=== PATIENT | male | born 1990 | race African-American/Black ===

== ENCOUNTER 2017-04-03 07:33 | Inpatient (IN) | payer OTHER ==
[2017-04-03] VITALS (12 sets, daily range): BP systolic 105–132; BP diastolic 57–67; PULSE 82–99; RESP 16; TEMP 99–99.2; O2SAT 96–100
[~2017-04-03] VITALS: Ht 186.7 cm; Wt 78.8 kg
[2017-04-03] MEDS ORDERED: GENTAMICIN 80 MG PREMIX 100 ML ONE (07:37)
[2017-04-03] MEDS ORDERED: DIPHTH/TETANUS/ACEL PERTUSSIS (BOOSTER) 0.5 ML VIAL/PFS IM ONE (07:37)
[2017-04-03] MEDS ORDERED: ONDANSETRON HCL 4 MG/2 ML VIAL ONE (07:37)
[2017-04-03] MEDS ORDERED: ceFAZolin 2 GM PREMIX 50 ML ONE ×2 (07:37→10:24)
[2017-04-03] MEDS ORDERED: PROPOFOL 200 MG/20 ML AMP ONE (07:38)
[2017-04-03] MEDS ORDERED: MORPHINE SULFATE 8 MG/ML INJ ONE ×2 (07:48→09:56)
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
[2017-04-03] MEDS ORDERED: IOHEXOL 350 MG/ML 10 ML VIAL (for RAD DIAG) IVCONTRAST ONE (08:15)
[2017-04-03 08:23] LABS: INTERNATIONAL NORMALIZED RATIO 1.1 RATIO; PROTHROMBIN TIME - PATIENT 11.2 SEC (9.8-11.6)
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
[2017-04-03 08:31] LABS: AUTOMATED NEUTROPHIL # 6.1 TH/MM3 (1.8-7.7); BASOPHIL # 0.1 TH/MM3 (0-0.2); BASOPHIL % 0.7 % (0.0-2.0); EOSINOPHIL # 0.1 TH/MM3 (0-0.4); EOSINOPHIL % 0.6 % (0.0-4.0); HEMATOCRIT 41.1 % (39.0-51.0); HEMOGLOBIN 14.1 GM/DL (13.0-17.0); LYMPHOCYTE # 2.1 TH/MM3 (1.0-4.8); MEAN CELL VOLUME 95.1 FL (80.0-100.0); MEAN CORPUSCULAR HEMOGLOBIN 32.5 PG (27.0-34.0); MEAN CORPUSCULAR HGB CONC 34.2 % (32.0-36.0); MEAN PLATELET VOLUME 8.4 FL (7.0-11.0); MONOCYTE # 0.9 TH/MM3 (0-0.9); NEUT % 65.7 % (16.0-70.0); PLATELET COUNT 314 TH/MM3 (150-450); RED BLOOD COUNT 4.32 MIL/MM3 (4.50-5.90); RED CELL DISTRIBUTION WIDTH 13.4 % (11.6-17.2); WHITE BLOOD COUNT 9.3 TH/MM3 (4.0-11.0)
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
[2017-04-03] MEDS ORDERED: MORPHINE SULFATE 4 MG/ML INJ IV PUSH ONE (08:45)
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
[2017-04-03] MEDS ORDERED: GENTAMICIN SULFATE 80 MG/2 ML VIAL ONE (10:23)
[2017-04-03] MEDS ORDERED: BUPIVACAINE/EPINEPHRINE 0.25% 50 ML VIAL ONE (10:23)
[2017-04-03] MEDS ORDERED: MIDAZOLAM HCL 2 MG/2 ML VIAL ONE (10:57)
[2017-04-03] MEDS ORDERED: ALBUMIN 5% INJ 500 ML IV ONE (11:21)
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
[2017-04-03] MEDS ORDERED: ACETAMINOPHEN 325 MG TAB PO PRN (11:30)
[2017-04-03] MEDS ORDERED: ENALAPRILAT 1.25 MG/ML VIAL IV PUSH PRN (11:30)
[2017-04-03] MEDS ORDERED: SODIUM CHLORIDE 0.9% FLUSH 10 ML FLUSH IV FLUSH PRN (11:30)
[2017-04-03] MEDS ORDERED: ONDANSETRON HCL 4 MG/2 ML VIAL IV PUSH PRN (11:30)
[2017-04-03] MEDS ORDERED: PHENYLEPH/NS 1000 MCG/10 ML SYR IV ONE ×2 (12:00)
[2017-04-03] MEDS ORDERED: LACTATED RINGER'S 1000 ML INJ 1,000 ML IV ONE (12:00)
[2017-04-03] MEDS ORDERED: PHENYLEPHRINE HCL 10 MG/ML VIAL IV ONE (12:00)
[2017-04-03] MEDS ORDERED: PROPOFOL 200 MG/20 ML AMP IV ONE ×2 (12:00)
[2017-04-03] MEDS ORDERED: LACTATED RINGER'S 1000 ML INJ 3,000 ML IV ONE (12:00)
[2017-04-03] MEDS ORDERED: ESMOLOL HCL 100 MG/10 ML VIAL IV ONE (12:00)
[2017-04-03] MEDS ORDERED: DEXAMETHASONE SOD PHOS 4 MG/ML VIAL IV ONE ×2 (12:00)
[2017-04-03] MEDS ORDERED: SUCCINYLCHOLINE CHLORIDE 200 MG/10 ML VIAL IV ONE ×2 (12:00)
[2017-04-03] MEDS ORDERED: LIDOCAINE HCL 1% PF 5 ML SYRINGE OTHER ONE ×2 (12:00)
[2017-04-03] MEDS ORDERED: ONDANSETRON HCL 4 MG/2 ML VIAL IV ONE ×2 (12:00)
[2017-04-03] MEDS ORDERED: ePHEDrine/NS 25 MG/5 ML SYRINGE IV ONE (12:00)
[2017-04-03] MEDS ORDERED: LACTATED RINGER'S 1000 ML INJ 1,000 ML IV SCH (12:05)
--- NOTE | 2017-04-03 12:13 | PD.OP ---
cc: Lonnie Pierson MD Operative Report Date of Surgery: Apr 03, 2017 Preoperative Diagnosis: Comminuted open left femur shaft fracture Postoperative Diagnosis: Procedure: Irrigation and debridement of left femur fracture, intramedullary nail fixation left femur fracture, complex wound closure 20 cm in length Anesthesia: Gen. Surgeon: Lonnie Pierson Vending Mechanic(s): AMBROCIO Dimas PA-C The surgical procedure was assisted by my physician plumber's assistant. My P.A. presence was necessary throughout this case for the manipulation and positioning of the surgical extremity. My P.A. was assisting me throughout the duration of this procedure. The skill set of a physician plumber's assistant was medically necessary to complete this procedure. During the surgical case the surgical instrument maker was working at the back table and the physician plumber's assistant was directly assisting me. Operation and Findings: Plan of activity: Toe-touch weightbearing left leg Patient was seen and evaluated preoperatively. The patient has significant leg pain from open left femur shaft fracture. The risk and benefits of surgery were discussed in depth with the patient to include bleeding, infection, nonunion, malunion, need for hip replacement, painful hardware, as well as medical competitions including blood clots, stroke, heart attack, and . Informed consent was obtained. Operative site was marked. Patient was brought to the operating room and placed on Tyler table. IV sedation was administered by anesthesiologist. Timeout procedure was performed. Hip and leg were prepped with alcohol followed by Hibiclens and draped in the usual sterile fashion. IV antibiotics were given prior to incision. Procedure began irrigation and debridement of open wound. There was a small lateral wound and a very large medial and posterior wound. Areas of muscle were debrided. Necrotic skin muscle and fascia were sharply debrided. Fracture site was visualized. Fracture was cleaned with curettes. There was some gross contamination. After thorough debridement of all necrotic and contaminated tissue, the soft tissue and bone were thoroughly irrigated with pulsatile lavage. At this point wound appeared to be clean. Next attention was turned towards reduction of fracture. Traction was applied. The leg was manipulated to achieve reduction. Excellent reduction was achieved. Fluoroscopy was used to confirm reduction. A two inch incision was made over the anterior knee. A medial arthrotomy was created. Guidepin was placed into the distal femur and advanced into the femoral canal. Fluoroscopy confirmed appropriate guidepin placement. A opening reamer was placed over the guidepin. A long ball tipped guide pin was now placed down the femoral canal into the center of the proximal femur. The nail length was now measured. Fluoroscopy confirmed appropriate guidepin placement. Flexible reamers were now passed over the guidepin to ream the intramedullary canal. The Synthes nail was attached to the insertion handle. Nail was now placed over the guidepin into the femoral canal. Fluoroscopy confirmed appropriate nail placement. A small percutaneous incisions were made over the lateral thigh. Cannulas were placed through the insertion handle down to the femur. Using the insertion handle as a guide the distal interlocking screw holes were predrilled and screw lengths were measured. Appropriate length screws was now placed. Next, using perfect tlingit & haida technique two proximal interlocking screws were placed. Screw holes were predrilled and screw lengths were measured. Final fluoroscopy revealed well aligned fracture with well-placed hardware. Next attention was turned to wound closure. Surgical incisions were closed with #1 PDS, 3-0 PDS, and ana. The traumatic lacerations were also closed. These lacerations were complicated closed secondary to the stellate nature of the wounds. Subcutaneous tissue was reapproximated with 3-0 PDS. Skin was closed with 3-0 nylon. A comminution vertical mattress, retention suture, and horizontal mattress sutures were utilized. The skin was completely closed. Sterile dressings were applied. Patient was awakened and transferred to recovery room. Lonnie Pierson MD Apr 03, 2017 12:13
[2017-04-03] MEDS ORDERED: diphenhydrAMINE HCL 25 MG CAP PO PRN (12:15)
[2017-04-03] MEDS ORDERED: ACETAMINOPHEN/HYDROcodone 325 MG/10 MG TAB PO PRN (12:15)
[2017-04-03] MEDS ORDERED: LORazepam 2 MG/ML VIAL IV PUSH PRN (12:15)
[2017-04-03] MEDS ORDERED: DO NOT ADM ANY ANTICOAGULANT DRUGS PRN (12:58)
[2017-04-03] MEDS: PANTOPRAZOLE SODIUM 40 MG VIAL IVP SCH (13:00)
[2017-04-03] MEDS: CALCIUM/VITAMIN D 250 MG/125 U TAB PO SCH ×2 (13:00→18:45)
[2017-04-03] MEDS: PHENYLEPHRINE 40 MG in D5W 500 ML IV PRN ×2 (13:05→20:48)
[2017-04-03] MEDS ORDERED: PHENYLEPHRINE HCL 10 MG/ML VIAL ONE (13:05)
[2017-04-03] MEDS ORDERED: *RESP: ALBUTEROL 2.5 MG/3 ML NEB (PRN) PERIprocedural Use ONLY NEB ONE (13:07)
[2017-04-03 13:31] LABS: HEMATOCRIT 29.6 % (39.0-51.0)
[2017-04-03] MEDS ORDERED: SUCCINYLCHOLINE CHLORIDE 200 MG/10 ML VIAL ONE (13:36)
[2017-04-03] MEDS ORDERED: PROPOFOL 1000 MG/100 ML INJ 100 ML ONE (13:36)
[2017-04-03] MEDS ORDERED: SENNOSIDES 8.6 MG TAB PO PRN (15:00)
[2017-04-03] MEDS ORDERED: MISCELLANEOUS NURSING INFORMATION XX SCH (15:00)
[2017-04-03] MEDS ORDERED: LACTULOSE SYRUP 20 GM/30 ML CUP PO PRN (15:00)
[2017-04-03] MEDS ORDERED: MAGNESIUM HYDROXIDE SUSP 30 ML CUP PO PRN (15:00)
[2017-04-03] MEDS ORDERED: PROPOFOL 1000 MG/100 ML INJ 100 ML IV PRN (15:00)
[2017-04-03] MEDS ORDERED: CHLORHEXIDINE GLUCONATE 2 % 1 PACK (2 CLOTHS) TOP PRN (15:00)
[2017-04-03] MEDS ORDERED: fentaNYL DRIP 250 ML IV PRN (15:00)
[2017-04-03] MEDS ORDERED: BISACODYL 10 MG SUPP RECTAL PRN (15:00)
[2017-04-03] MEDS ORDERED: fentaNYL DRIP 250 ML ONE (15:20)
[2017-04-03] MEDS ORDERED: TERBUTALINE INJ 1 MG/ML AMP SQ PRN (15:30)
[2017-04-03] MEDS ORDERED: NOREPINEPHRINE 4 MG/D5W 250 ML IV PRN (15:30)
--- NOTE | 2017-04-03 15:32 | RADRPT ---
EXAM DATE/TIME: 04/03/2017 11:42 [facility] COMPARISON: FEMUR LEFT (AP & LAT/2VWS), April 03, 2017, 7:34. INDICATIONS : Left femur fracture repair with intermedullary damari. OR. MEDICAL HISTORY : None. SURGICAL HISTORY : None. ENCOUNTER: Initial ACUITY: 1 day PAIN SCORE: Non-responsive. LOCATION: Left femur FINDINGS: Intramedullary damari is noted within the left femur status post ORIF of mid shaft comminuted fracture. CONCLUSION: Intramedullary damari within the left femur status post ORIF of comminuted mid shaft fracture. Jorge Luis Jaquez MD on April 03, 2017 at 15:29 Board Certified Radiologist. This report was verified electronically.
--- NOTE | 2017-04-03 15:39 | RADRPT ---
EXAM DATE/TIME: 04/03/2017 14:20 [facility] COMPARISON: CHEST SINGLE AP, April 03, 2017, 7:34. INDICATIONS : Re-intubation. MEDICAL HISTORY : Unobtainable. SURGICAL HISTORY : Unobtainable. ENCOUNTER: Subsequent ACUITY: 1 day PAIN SCORE: Non-responsive. LOCATION: Bilateral chest FINDINGS: Endotracheal tube has its tip in good position 4 cm above the jacy. Right perihilar patchiness is n oted consistent with atelectasis and/or focal infiltrate. The left lung is clear. The heart is normal . CONCLUSION: 1. Right perihilar patchiness with atelectasis and/or infiltrate. 2. Endotracheal tube in good position 4 cm above the jacy. Jorge Luis Jaquez MD on April 03, 2017 at 15:36 Board Certified Radiologist. This report was verified electronically.
[2017-04-03] MEDS ORDERED: RASS Change Order XX ONE (15:45)
[2017-04-03] MEDS ORDERED: RESP: ALBUTEROL 2.5 MG/3 ML NEB (PRN) NEB (15:45)
[2017-04-03] MEDS ORDERED: PROPOFOL 1000 MG/100 ML IV PRN (15:45)
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
[2017-04-03] MEDS: SODIUM CHLOR 0.9% 1000 ML INJ 1,000 ML IV SCH (16:00)
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
[2017-04-03] MEDS ORDERED: fentaNYL 2,500 MCG/NS 250 ML IV PRN (18:00)
[2017-04-03] MEDS: PROPOFOL 1000 MG/100 ML IV PRN ×2 (18:23→21:50)
[2017-04-03] MEDS: ceFAZolin 2 GM PREMIX 50 ML IV SCH (18:24)
[2017-04-03] MEDS: GENTAMICIN 80 MG PREMIX 100 ML IV SCH (18:24)
[2017-04-03] MEDS: CHLORHEXIDINE 0.12% (ORAL KIT) 15 ML CUP MT SCH (20:27)
[2017-04-03] MEDS: DOCUSATE SODIUM 50 MG/SENNA 8.6 MG TAB PO SCH (20:27)
[2017-04-03] MEDS: RESP: ALBUTEROL 2.5 MG/IPRATROPIUM 0.5 MG NEB (SCH) NEB (20:57)
[2017-04-03] MEDS ORDERED: FAMOTIDINE 20 MG/2 ML VIAL IV PUSH SCH (21:00)
[2017-04-03] MEDS ORDERED: ENOXAPARIN SODIUM 30 MG/0.3 ML SYRINGE SQ SCH (21:00)
[2017-04-04] VITALS (17 sets, daily range): BP systolic 99–137; BP diastolic 50–69; PULSE 70–122; RESP 16–26; TEMP 98.3–100.9; O2SAT 93–100
[2017-04-04] MEDS: SODIUM CHLOR 0.9% 1000 ML INJ 1,000 ML IV SCH ×3 (01:11→20:50)
[2017-04-04] MEDS: PROPOFOL 1000 MG/100 ML IV PRN ×3 (01:11→09:22)
[2017-04-04] MEDS: ceFAZolin 2 GM PREMIX 50 ML IV SCH ×3 (03:11→18:20)
[2017-04-04] MEDS: GENTAMICIN 80 MG PREMIX 100 ML IV SCH ×3 (03:45→18:33)
[2017-04-04] MEDS: RESP: ALBUTEROL 2.5 MG/IPRATROPIUM 0.5 MG NEB (SCH) NEB ×3 (03:50→20:35)
[2017-04-04] MEDS: CHLORHEXIDINE GLUCONATE 2 % 1 PACK (2 CLOTHS) TOP SCH (04:00)
[2017-04-04] MEDS: PHENYLEPHRINE 40 MG in D5W 500 ML IV PRN (04:04)
[2017-04-04 04:07] LABS: AUTOMATED NEUTROPHIL # 6.3 TH/MM3 (1.8-7.7); BASOPHIL % 0.1 % (0.0-2.0); HEMOGLOBIN 9.6 GM/DL (13.0-17.0); LYMPH % 15.2 % (9.0-44.0); LYMPHOCYTE # 1.3 TH/MM3 (1.0-4.8); MEAN CELL VOLUME 95.5 FL (80.0-100.0); MEAN CORPUSCULAR HEMOGLOBIN 32.7 PG (27.0-34.0); MEAN CORPUSCULAR HGB CONC 34.2 % (32.0-36.0); MEAN PLATELET VOLUME 8.4 FL (7.0-11.0); MONOCYTE # 1.1 TH/MM3 (0-0.9); NEUT % 71.7 % (16.0-70.0); PLATELET COUNT 252 TH/MM3 (150-450); RED BLOOD COUNT 2.93 MIL/MM3 (4.50-5.90); RED CELL DISTRIBUTION WIDTH 13.2 % (11.6-17.2); WHITE BLOOD COUNT 8.8 TH/MM3 (4.0-11.0)
[2017-04-04 04:35] LABS: ALBUMIN 2.9 GM/DL (3.4-5.0); AST (GOT) 159 U/L (15-37); BICARBONATE 28.7 MEQ/L (21.0-32.0); BLOOD UREA NITROGEN 10 MG/DL (7-18); CALCIUM 8.5 MG/DL (8.5-10.1); CHLORIDE 102 MEQ/L (98-107); CREATININE 1.01 MG/DL (0.60-1.30); GLOMERULAR FILTRATION RATE 77 ML/MIN (>89); GLUCOSE,RANDOM 129 MG/DL (74-106); SODIUM (NA) 138 MEQ/L (136-145)
[2017-04-04 04:36] LABS: ALT (GPT) 54 U/L (12-78); PHOSPHORUS 4.2 MG/DL (2.5-4.9)
[2017-04-04 04:38] LABS: ALKALINE PHOSPHATASE 57 U/L (45-117); TOTAL BILIRUBIN ADULT 0.4 MG/DL (0.2-1.0); TOTAL PROTEIN 5.5 GM/DL (6.4-8.2)
[2017-04-04] MEDS: ARTIFICIAL TEARS OPTH SOLN 15 ML BTL EACH EYE SCH ×3 (05:25→20:34)
--- NOTE | 2017-04-04 05:32 | RADRPT ---
EXAM DATE/TIME: 04/04/2017 04:45 [facility] COMPARISON: CHEST SINGLE AP, April 03, 2017, 14:20. INDICATIONS : Respiratory failure. MEDICAL HISTORY : Unobtainable. SURGICAL HISTORY : Unobtainable. ENCOUNTER: Subsequent ACUITY: 2 days PAIN SCORE: Non-responsive. LOCATION: Bilateral chest FINDINGS: A single view of the chest demonstrates endotracheal tube in good position. NG enters stomach. Mild b asilar and dependent airspace disease, right greater than left. No significant change from April 03 . No effusion or pneumothorax.. CONCLUSION: Mild basilar airspace disease, unchanged. Placement of nasogastric tube seen entering stomach. Endotr acheal tube unchanged. Mendez Parker MD on April 04, 2017 at 5:29 Board Certified Radiologist. This report was verified electronically.
--- NOTE | 2017-04-04 06:56 | PD.ORT.PN ---
Subjective Subjective Remarks POD 1 s/p I&D with IMN and vac application left open femur fracture intubated/sedated Objective Vitals Vital Signs Date Time Temp Pulse Resp B/P (MAP) Pulse Ox O2 Delivery O2 Flow Rate FiO2 04/04/17 06:00 112 04/04/17 04:26 100 40 04/04/17 04:04 113 109/56 04/04/17 04:00 114 04/04/17 04:00 99.0 114 16 109/56 (73) 100 04/04/17 02:00 104 04/04/17 01:17 100 40 04/04/17 00:00 100 04/04/17 00:00 100 Mechanical Ventilator 40 04/04/17 00:00 99.8 100 16 101/59 (73) 100 04/03/17 22:00 94 04/03/17 20:57 99 40 04/03/17 20:48 90 106/58 04/03/17 20:00 99.2 90 16 105/57 (73) 99 04/03/17 20:00 99 Mechanical Ventilator 40 04/03/17 20:00 90 04/03/17 18:00 82 04/03/17 16:29 100 40 04/03/17 16:15 100 100 04/03/17 16:00 99.0 82 16 118/66 (83) 99 04/03/17 16:00 78 16 107/71 (83) 100 Mechanical Ventilator 50 04/03/17 15:45 80 16 107/66 (80) 100 Mechanical Ventilator 50 04/03/17 15:30 79 16 108/67 (81) 100 Mechanical Ventilator 50 04/03/17 15:15 78 16 111/58 (75) 100 Mechanical Ventilator 50 04/03/17 15:00 78 16 105/60 (75) 100 Mechanical Ventilator 50 04/03/17 14:45 79 16 115/58 (77) 100 Mechanical Ventilator 50 04/03/17 14:30 83 16 99/57 (71) 100 Mechanical Ventilator 50 04/03/17 14:15 84 16 99/54 (69) 100 Mechanical Ventilator 50 04/03/17 14:00 89 17 104/54 (71) 96 Mechanical Ventilator 50 04/03/17 13:45 92 16 101/54 (70) 100 Mechanical Ventilator 50 04/03/17 13:42 100 50 04/03/17 13:42 50 04/03/17 13:30 90 18 107/56 (73) 100 Simple Mask 15 04/03/17 13:15 98 18 98/50 (66) 90 Simple Mask 15 04/03/17 13:05 81 86/43 04/03/17 13:05 81 86/43 04/03/17 13:00 98.4 81 16 86/43 (57) 100 Simple Mask 15 04/03/17 09:20 04/03/17 09:00 99 16 132/66 (88) 99 Nasal Cannula 2.00 04/03/17 08:53 96 04/03/17 08:52 96 3.00 04/03/17 08:20 98 16 130/67 (88) 98 Room Air 04/03/17 08:20 99 Nasal Cannula 2.00 I/O 04/03/17 04/03/17 04/03/17 04/04/17 04/04/17 04/04/17 07:00 15:00 23:00 07:00 15:00 23:00 Intake Total 1600 ml 600 ml 1850 ml Output Total 4250 ml 1400 ml 1750 ml Balance -2650 ml -800 ml 100 ml Intake IV Total 1600 ml 600 ml 1850 ml Output Urine Total 1400 ml 1700 ml Gastric Drainage Total 50 ml Drainage Total 0 ml 0 ml Estimated Blood Loss 250 ml Other 4000 ml # Bowel Movements 0 Result Diagram: 04/04/1725204/04/17252 Other Results Laboratory Tests Test 04/03/17 07:39 Prothromb Time International Ratio 1.1 RATIO Prothrombin Time 11.2 SEC (9.8-11.6) Imaging Last 24 hours Impressions Chest X-Ray 04/04/17 0600 Signed Impressions: Service Date/Time: Tuesday, April 04, 2017 04:45 - CONCLUSION: Mild basilar airspace disease, unchanged. Placement of nasogastric tube seen entering stomach. Endotracheal tube unchanged. Mendez Parker MD Pelvis X-Ray 04/03/17750 Signed Impressions: Service Date/Time: March 07:34 - CONCLUSION: No acute bony abnormality identified. Morris Singh MD Head CT 04/03/17750 Signed Impressions: Service Date/Time: March 07:55 - CONCLUSION: Mild cerebral atrophy. No acute intracranial abnormality. Khurram Reyna MD Chest X-Ray 04/03/17750 Signed Impressions: Service Date/Time: March 07:34 - CONCLUSION: 1. Negative examination. Morris Singh MD Chest CT 04/03/17750 Signed Impressions: Service Date/Time: March 08:06 - CONCLUSION: 1. No acute thoracic injury. Khurram Reyna MD Cervical Spine CT 04/03/17750 Signed Impressions: Service Date/Time: March 08:02 - CONCLUSION: 1. No fracture seen. 2. Rotation at the C1-C2 facets likely positional. Khurram Reyna MD Abdomen/Pelvis CT 04/03/17750 Signed Impressions: Service Date/Time: March 08:04 - CONCLUSION: 1. No abdominal visceral injury. 2. Sclerotic focus right proximal femur likely bone island Khurram Reyna MD Objective Remarks LLE: dressings clean and dry. slight bloody drainage on lateral thigh. vac in place. good seal. Assessment & Plan Assessment and Plan 1) Left Open Femoral Shaft Fx s/p IMN with vac application - POD 1 -TTWB -maintain dressings -maintain vac dressing. will eval for vac removal mon/Valentin Brown/[employer] VITA Apr 04, 2017 06:56
[2017-04-04] MEDS ORDERED: HALOPERIDOL LACTATE 5 MG/ML AMP IV PUSH PRN (07:30)
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
[2017-04-04] MEDS ORDERED: ZIPRASIDONE MESYLATE 20 MG VIAL IM PRN (08:15)
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
[2017-04-04] MEDS: CALCIUM/VITAMIN D 250 MG/125 U TAB PO SCH ×3 (08:31→17:49)
[2017-04-04] MEDS: CHLORHEXIDINE 0.12% (ORAL KIT) 15 ML CUP MT SCH ×2 (08:31→20:00)
[2017-04-04] MEDS: FOLIC ACID 1 MG TAB PO SCH (08:31)
[2017-04-04] MEDS: DOCUSATE SODIUM 50 MG/SENNA 8.6 MG TAB PO SCH ×2 (08:31→20:31)
[2017-04-04] MEDS: THIAMINE HCL 100 MG TAB PO SCH (08:31)
[2017-04-04] MEDS: MULTIVITAMIN TAB PO SCH (08:31)
[2017-04-04] MEDS: DEXMEDETOMIDINE INJ 200 MCG in SODIUM CHLORIDE 0.9% INJ 50 ML IV PRN ×2 (09:23→11:17)
[2017-04-04] MEDS ORDERED: LACTATED RINGER'S 1000 ML INJ 1,000 ML IV ONE ×2 (09:45→13:15)
--- NOTE | 2017-04-04 10:23 | RADRPT ---
EXAM DATE/TIME: 04/04/2017 09:48 [facility] COMPARISON: No previous studies available for comparison. INDICATIONS : Left foot pain. MEDICAL HISTORY : None. SURGICAL HISTORY : None. ENCOUNTER: Initial ACUITY: 2 days PAIN SCORE: Non-responsive. LOCATION: Left foot FINDINGS: Two view examination of the left foot demonstrates no soft tissue swelling, dislocation, or fracture. The calcaneus is intact. Bony mineralization is normal. CONCLUSION: Negative for fracture. Cale Singh MD FACR on April 04, 2017 at 10:20 Board Certified Radiologist. This report was verified electronically.
[2017-04-04] MEDS ORDERED: PHENYLEPHRINE HCL 10 MG/ML VIAL ONE (11:29)
[2017-04-04] MEDS ORDERED: ALBUMIN 5% INJ 500 ML IV ONE (12:15)
[2017-04-04] MEDS: PANTOPRAZOLE SODIUM 40 MG VIAL IVP SCH (12:33)
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
[2017-04-04] MEDS: HYDROCORTISONE SOD SUCCINATE 100 MG VIAL IV PUSH SCH ×2 (13:50→20:30)
[2017-04-04] MEDS: ENOXAPARIN SODIUM 30 MG/0.3 ML SYRINGE SQ SCH ×2 (13:52→23:40)
[2017-04-04] MEDS: MIDODRINE 5 MG TAB PO SCH ×2 (13:52→17:49)
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
[2017-04-04] MEDS: MORPHINE SULFATE 4 MG/ML INJ IV PUSH PRN ×3 (15:00→21:34)
[2017-04-04] MEDS: ACETAMINOPHEN/HYDROcodone 325 MG/5 MG TAB PO PRN (20:28)
[2017-04-05] VITALS (17 sets, daily range): BP systolic 96–136; BP diastolic 50–65; PULSE 71–98; RESP 12–19; TEMP 98.3–99.6; O2SAT 97–100
[2017-04-05] MEDS: CHLORHEXIDINE GLUCONATE 2 % 1 PACK (2 CLOTHS) TOP SCH (02:59)
[2017-04-05] MEDS: ceFAZolin 2 GM PREMIX 50 ML IV SCH ×3 (03:00→18:09)
[2017-04-05] MEDS: GENTAMICIN 80 MG PREMIX 100 ML IV SCH ×2 (03:00→11:42)
[2017-04-05] MEDS: RESP: ALBUTEROL 2.5 MG/IPRATROPIUM 0.5 MG NEB (SCH) NEB ×2 (03:17→07:58)
[2017-04-05] MEDS: HYDROCORTISONE SOD SUCCINATE 100 MG VIAL IV PUSH SCH (04:07)
[2017-04-05] MEDS: ACETAMINOPHEN/HYDROcodone 325 MG/5 MG TAB PO PRN ×4 (04:08→20:58)
[2017-04-05] MEDS: MORPHINE SULFATE 4 MG/ML INJ IV PUSH PRN ×3 (04:08→21:57)
[2017-04-05] MEDS: ARTIFICIAL TEARS OPTH SOLN 15 ML BTL EACH EYE SCH (04:09)
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
[2017-04-05] MEDS: MIDODRINE 5 MG TAB PO SCH ×3 (06:20→17:59)
--- NOTE | 2017-04-05 07:16 | PD.ORT.PN ---
Subjective Subjective Remarks Resting comfortably currently. States pain relatively well controlled at rest. Denies SOB/CP. Objective Vitals Vital Signs Date Time Temp Pulse Resp B/P (MAP) Pulse Ox O2 Delivery O2 Flow Rate FiO2 04/05/17 06:00 76 04/05/17 04:00 76 04/05/17 04:00 98.5 76 14 109/58 (75) 100 04/05/17 02:00 76 04/05/17 00:00 84 04/05/17 00:00 99.6 84 15 96/50 (65) 99 04/04/17 22:00 94 04/04/17 20:37 100 21 04/04/17 20:00 96 04/04/17 20:00 100 Room Air 04/04/17 20:00 100.9 101 26 122/57 (78) 100 04/04/17 18:00 98 04/04/17 16:00 98.8 96 23 109/56 (73) 99 04/04/17 16:00 91 04/04/17 15:05 18 04/04/17 14:00 98 04/04/17 12:00 98.6 70 26 137/69 (91) 100 04/04/17 12:00 120 04/04/17 10:10 93 Nasal Cannula 3.00 04/04/17 10:10 94 Nasal Cannula 3 04/04/17 10:00 122 04/04/17 09:07 99 40 04/04/17 08:00 110 04/04/17 08:00 98.3 114 16 99/50 (66) 100 I/O 04/04/17 04/04/17 04/04/17 04/05/17 04/05/17 04/05/17 07:00 15:00 23:00 07:00 15:00 23:00 Intake Total 1850 ml 1225 ml 3545 ml 390 ml Output Total 1750 ml 1650 ml 1650 ml Balance 100 ml 1225 ml 1895 ml -1260 ml Intake Oral 450 ml 240 ml IV Total 1850 ml 1225 ml 3095 ml 150 ml Output Urine Total 1700 ml 1650 ml 1650 ml Gastric Drainage Total 50 ml Drainage Total 0 ml 0 ml # Bowel Movements 0 0 0 Result Diagram: 04/04/17 0253 04/04/173 Imaging Last 24 hours Impressions Chest X-Ray 04/04/17 0600 Signed Impressions: Service Date/Time: Tuesday, April 04, 2017 04:45 - CONCLUSION: Mild basilar airspace disease, unchanged. Placement of nasogastric tube seen entering stomach. Endotracheal tube unchanged. Mendez Parker MD Pelvis X-Ray 04/03/17750 Signed Impressions: Service Date/Time: March 07:34 - CONCLUSION: No acute bony abnormality identified. Morris Singh MD Head CT 04/03/17750 Signed Impressions: Service Date/Time: March 07:55 - CONCLUSION: Mild cerebral atrophy. No acute intracranial abnormality. Khurram Reyna MD Chest X-Ray 04/03/17750 Signed Impressions: Service Date/Time: March 07:34 - CONCLUSION: 1. Negative examination. Morris Singh MD Chest CT 04/03/17750 Signed Impressions: Service Date/Time: March 08:06 - CONCLUSION: 1. No acute thoracic injury. Khurram Reyna MD Cervical Spine CT 04/03/17750 Signed Impressions: Service Date/Time: March 08:02 - CONCLUSION: 1. No fracture seen. 2. Rotation at the C1-C2 facets likely positional. Khurram Reyna MD Abdomen/Pelvis CT 04/03/17750 Signed Impressions: Service Date/Time: March 08:04 - CONCLUSION: 1. No abdominal visceral injury. 2. Sclerotic focus right proximal femur likely bone island Khurram Reyna MD Objective Remarks Asleep but arousable. NAD LLE: dressings clean and dry. slight bloody drainage on lateral thigh. vac in place. good seal. Negative Homans Assessment & Plan Assessment and Plan 1) Left Open Femoral Shaft Fx s/p IMN with vac application - POD 2 -TTWB -maintain dressings -maintain vac dressing. will eval for vac removal mon/Blossom Nieves MD Apr 05, 2017 07:16
[2017-04-05 07:25] LABS: MEAN CORPUSCULAR HEMOGLOBIN 33.5 PG (27.0-34.0); MEAN CORPUSCULAR HGB CONC 35.3 % (32.0-36.0); MEAN PLATELET VOLUME 8.7 FL (7.0-11.0); PLATELET COUNT 159 TH/MM3 (150-450); RED CELL DISTRIBUTION WIDTH 13.3 % (11.6-17.2); WHITE BLOOD COUNT 7.6 TH/MM3 (4.0-11.0)
[2017-04-05] MEDS: CHLORHEXIDINE 0.12% (ORAL KIT) 15 ML CUP MT SCH (07:30)
[2017-04-05] MEDS: SODIUM CHLOR 0.9% 1000 ML INJ 1,000 ML IV SCH (07:30)
[2017-04-05 07:31] LABS: HEMOGLOBIN 6.7 GM/DL (13.0-17.0)
[2017-04-05 07:41] LABS: BICARBONATE 31.5 MEQ/L (21.0-32.0); CALCIUM 8.1 MG/DL (8.5-10.1); CREATININE 0.86 MG/DL (0.60-1.30)
[2017-04-05] MEDS: MULTIVITAMIN TAB PO SCH (08:26)
[2017-04-05] MEDS: DOCUSATE SODIUM 50 MG/SENNA 8.6 MG TAB PO SCH ×2 (08:26→20:50)
[2017-04-05] MEDS: FOLIC ACID 1 MG TAB PO SCH (08:26)
[2017-04-05] MEDS: THIAMINE HCL 100 MG TAB PO SCH (08:26)
[2017-04-05] MEDS: CALCIUM/VITAMIN D 250 MG/125 U TAB PO SCH ×3 (08:26→18:09)
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
[2017-04-05] MEDS: PANTOPRAZOLE SOD 40 MG DELAYED RELEASE TAB PO SCH (09:48)
[2017-04-05] MEDS: ENOXAPARIN SODIUM 30 MG/0.3 ML SYRINGE SQ SCH ×2 (11:43→23:45)
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
[2017-04-05 17:44] LABS: HEMATOCRIT 24.3 % (39.0-51.0); HEMOGLOBIN 8.5 GM/DL (13.0-17.0)
[2017-04-06 00:59] VITALS: BP 127/57; PULSE 92; RESP 19; TEMP 97.8; O2SAT 96
[2017-04-06] MEDS: ACETAMINOPHEN/HYDROcodone 325 MG/5 MG TAB PO PRN ×3 (01:12→13:12)
[2017-04-06] MEDS: ceFAZolin 2 GM PREMIX 50 ML IV SCH ×2 (01:12→09:54)
[2017-04-06] MEDS: MORPHINE SULFATE 4 MG/ML INJ IV PUSH PRN ×3 (03:39→18:12)
[2017-04-06] MEDS: CHLORHEXIDINE GLUCONATE 2 % 1 PACK (2 CLOTHS) TOP SCH (04:00)
[2017-04-06 04:21] VITALS: BP 105/56; PULSE 86; RESP 18; TEMP 97.9; O2SAT 98
[2017-04-06] MEDS: MIDODRINE 5 MG TAB PO SCH ×2 (06:52→09:54)
[2017-04-06 07:42] LABS: HEMATOCRIT 22.8 % (39.0-51.0); HEMOGLOBIN 7.8 GM/DL (13.0-17.0); MEAN CELL VOLUME 92.1 FL (80.0-100.0); MEAN CORPUSCULAR HEMOGLOBIN 31.6 PG (27.0-34.0); MEAN CORPUSCULAR HGB CONC 34.3 % (32.0-36.0); MEAN PLATELET VOLUME 8.6 FL (7.0-11.0); PLATELET COUNT 169 TH/MM3 (150-450); RED BLOOD COUNT 2.47 MIL/MM3 (4.50-5.90); RED CELL DISTRIBUTION WIDTH 15.5 % (11.6-17.2); WHITE BLOOD COUNT 8.5 TH/MM3 (4.0-11.0)
[2017-04-06 08:00] VITALS: BP 114/64; PULSE 75; PULSE 86; RESP 18; TEMP 98.6; O2SAT 96
[2017-04-06 08:05] LABS: BICARBONATE 29.6 MEQ/L (21.0-32.0); CALCIUM 7.6 MG/DL (8.5-10.1); CREATININE 0.69 MG/DL (0.60-1.30)
[2017-04-06] MEDS: DOCUSATE SODIUM 50 MG/SENNA 8.6 MG TAB PO SCH (09:55)
[2017-04-06] MEDS: THIAMINE HCL 100 MG TAB PO SCH (09:55)
[2017-04-06] MEDS: PANTOPRAZOLE SOD 40 MG DELAYED RELEASE TAB PO SCH (09:55)
[2017-04-06] MEDS: MULTIVITAMIN TAB PO SCH (09:55)
[2017-04-06] MEDS: FOLIC ACID 1 MG TAB PO SCH (09:55)
[2017-04-06] MEDS: CALCIUM/VITAMIN D 250 MG/125 U TAB PO SCH ×3 (09:55→17:04)
[2017-04-06] MEDS: ENOXAPARIN SODIUM 30 MG/0.3 ML SYRINGE SQ SCH (09:58)
[2017-04-06] MEDS ORDERED: FOLI1TAB6 PO (11:48)
[2017-04-06] MEDS ORDERED: THIA100 PO (11:48)
[2017-04-06] MEDS ORDERED: THERTAB15 PO (11:48)
[2017-04-06] MEDS ORDERED: ENOX30P SQ (11:48)
[2017-04-06] MEDS ORDERED: PERI PO (11:48)
[2017-04-06] MEDS ORDERED: ZIPR20P IM (11:48)
[2017-04-06] MEDS ORDERED: HALO5P IV PUSH (11:48)
[2017-04-06] MEDS ORDERED: PANT40TA3 PO (11:48)
[2017-04-06] MEDS ORDERED: CALC250 PO (11:48)
[2017-04-06] MEDS ORDERED: HYDR-3516 PO (11:48)
[2017-04-06] MEDS ORDERED: MAGN30S PO (11:48)
[2017-04-06] MEDS ORDERED: MORP4INJ3 IV PUSH (11:48)
[2017-04-06] MEDS ORDERED: Lactulose Liq PO (11:48)
[2017-04-06 12:00] VITALS: BP 136/73; PULSE 79; PULSE 93; RESP 18; TEMP 96; O2SAT 98
--- NOTE | 2017-04-06 12:31 | PD.ORT.PN ---
Subjective Subjective Remarks Resting comfortably currently. States pain relatively well controlled at rest. Denies SOB/CP. Objective Vitals Vital Signs Date Time Temp Pulse Resp B/P (MAP) Pulse Ox O2 Delivery O2 Flow Rate FiO2 04/06/17 12:00 96.0 79 18 136/73 (94) 98 04/06/17 10:45 18 04/06/17 08:27 18 04/06/17 08:00 86 04/06/17 08:00 98.6 75 18 114/64 (81) 96 04/06/17 04:21 97.9 86 18 105/56 (72) 98 04/06/17 00:59 97.8 92 19 127/57 (80) 96 04/05/17 22:23 98.3 98 18 136/58 (84) 97 04/05/17 21:52 Room Air 04/05/17 20:27 100 21 04/05/17 20:00 96 04/05/17 20:00 100 Room Air 04/05/17 20:00 99.5 96 19 124/59 (80) 100 04/05/17 18:00 94 04/05/17 16:00 98.5 96 16 128/65 (86) 99 04/05/17 16:00 93 04/05/17 14:00 86 04/05/17 13:40 98.5 87 17 111/59 100 04/05/17 13:25 98.5 79 15 111/59 100 I/O 04/05/17 04/05/17 04/05/17 04/06/17 04/06/17 04/06/17 07:00 15:00 23:00 07:00 15:00 23:00 Intake Total 390 ml 400 ml 1480 ml 480 ml Output Total 1650 ml 850 ml Balance -1260 ml 400 ml 630 ml 480 ml Intake Oral 240 ml 1080 ml 480 ml IV Total 150 ml Packed Cells 400 ml 400 ml Output Urine Total 1650 ml 850 ml Drainage Total 0 ml 0 ml # Voids 2 1 # Bowel Movements 0 0 0 Result Diagram: 04/06/1761404/06/17614 Imaging Last 24 hours Impressions Chest X-Ray 04/04/17 0600 Signed Impressions: Service Date/Time: Tuesday, April 04, 2017 04:45 - CONCLUSION: Mild basilar airspace disease, unchanged. Placement of nasogastric tube seen entering stomach. Endotracheal tube unchanged. Mendez Parker MD Pelvis X-Ray 04/03/17750 Signed Impressions: Service Date/Time: March 07:34 - CONCLUSION: No acute bony abnormality identified. Morris Singh MD Head CT 04/03/17750 Signed Impressions: Service Date/Time: March 07:55 - CONCLUSION: Mild cerebral atrophy. No acute intracranial abnormality. Khurram Reyna MD Chest X-Ray 04/03/17750 Signed Impressions: Service Date/Time: March 07:34 - CONCLUSION: 1. Negative examination. Morris Singh MD Chest CT 04/03/17750 Signed Impressions: Service Date/Time: March 08:06 - CONCLUSION: 1. No acute thoracic injury. Khurram Reyna MD Cervical Spine CT 04/03/17750 Signed Impressions: Service Date/Time: March 08:02 - CONCLUSION: 1. No fracture seen. 2. Rotation at the C1-C2 facets likely positional. Khurram Reyna MD Abdomen/Pelvis CT 04/03/17750 Signed Impressions: Service Date/Time: March 08:04 - CONCLUSION: 1. No abdominal visceral injury. 2. Sclerotic focus right proximal femur likely bone island Khurram Reyna MD Objective Remarks Awake and alert. Sitting at bedside chair. NAD LLE: dressings clean and dry. vac in place. good seal. Negative Homans Assessment & Plan Assessment and Plan 1) Left Open Femoral Shaft Fx s/p IMN with vac application - POD 3 -TTWB -maintain dressings -maintain vac dressing. will eval for vac removal mon/tu -Per primary team, patient being transferred to [facility] psych unit Blossom Rodriguez MD Apr 06, 2017 12:31
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
[2017-04-06 16:00] VITALS: BP 116/68; PULSE 84; RESP 18; TEMP 98.1; O2SAT 100
[2017-04-06 18:17] VITALS: RESP 18
== END 2017-04-06 19:50 | DRG 480 ==
LOC: NEPI 07:33 → NEDA 08:38 → EDBD 08:38 → N03B 16:19 → N06A 04-05 22:11
PROVIDERS: ADMIT Surgery; ATTEND Surgery
PROC: 0QS9XZZ Reposition Left Femoral Shaft, External Approach (ICD-10-PCS; 2017-04-03)
PROC: 5A1935Z Respiratory Ventilation, Less than 24 Consecutive Hours (ICD-10-PCS; 2017-04-03)
PROC: 0BH17EZ Insertion of Endotracheal Airway into Trachea, Via Natural or Artificial Opening (ICD-10-PCS; 2017-04-03)
PROC: 0QS906Z Reposition Left Femoral Shaft with Intramedullary Internal Fixation Device, Open Approach (ICD-10-PCS; principal; 2017-04-03 10:37)
PROC: 30233N1 Transfusion of Nonautologous Red Blood Cells into Peripheral Vein, Percutaneous Approach (ICD-10-PCS; 2017-04-05)
DX: S72.352B Displaced comminuted fracture of shaft of left femur, initial encounter for open fracture type I or II (principal); J95.821 Acute postprocedural respiratory failure; I95.89 Other hypotension; F11.20 Opioid dependence, uncomplicated; F15.20 Other stimulant dependence, uncomplicated; F13.20 Sedative, hypnotic or anxiolytic dependence, uncomplicated; D62 Acute posthemorrhagic anemia; F17.210 Nicotine dependence, cigarettes, uncomplicated; F43.21 Adjustment disorder with depressed mood; F90.9 Attention-deficit hyperactivity disorder, unspecified type; N50.9 Disorder of male genital organs, unspecified; F22 Delusional disorders; E86.1 Hypovolemia; Z59.0 Homelessness; Z91.410 Personal history of adult physical and sexual abuse; V05 Pedestrian injured in collision with railway train or railway vehicle
CPT/HCPCS: 27502; 31500; 36430; 36600; 70450; 71045; 71260; 72125; 72170; 73551; 73552; 73620; 74177; 76000; 80048; 80053; 80307; 82533; 82805; 83735; 84100; 85014; 85018; 85025; 85027; 85610; 85730; 86850; 86900; 86901; 86920; 87641; 90471; 90715; 94002; 94003; 94150; 94640; 94664; 94770; 96374; 96375; 99152; 99153; 99291; C1713; C1769; C9113; G0390; J0330; J0690; J1100; J1580; J1650; J1720; J2250; J2270; J2370; J2405; J3010; J7030; J7060; J7120; J7613; P9016; P9045; Q9967